=== PATIENT | female | born 1980 | race Caucasian/White ===

== ENCOUNTER → 2021-08-19 12:37 | Outpatient (CLI) | payer OTHER, SELFPAY ==
[2021-08-24 04:29] LABS: Chlamydia By Nucleic Acid AMP Negative (Negative)
[2021-08-24 14:41] LABS: Gonococcus By Nucleic Acid AMP Negative (Negative)
== END ==
PROVIDERS: Visit Provider Obstetrics & Gynecology
DX: Z11.3 Encounter for screening for infections with a predominantly sexual mode of transmission (principal)
CPT/HCPCS: 87491; 87591

== ENCOUNTER → 2021-11-16 12:58 | Outpatient (CLI) | payer OTHER, SELFPAY ==
[2021-11-24 09:01] LABS: HPV APTIMA, High Risk Negative (Negative)
== END ==
PROVIDERS: Visit Provider Obstetrics & Gynecology
DX: Z12.4 Encounter for screening for malignant neoplasm of cervix (principal)
CPT/HCPCS: 87624; 88175; G0145